=== PATIENT | male | born 1950 | race Caucasian/White ===

== ENCOUNTER 2019-12-19 10:56 | Emergency (ER) | payer MEDICARE, OTHER ==
[2019-12-19] MEDS ORDERED: Ibuprofen 800 MG TAB ONE (11:39)
[2019-12-19] MEDS ORDERED: HYDROcodone/Acetaminophen 5/325 mg Tablet ONE (11:39)
--- NOTE | 2019-12-19 15:50 | RAD ---
RIGHT WRIST THREE VIEWS: 12/19/19 An impacted fracture of the distal radius is present, but there is also a longitudinal part to this f racture that extends into the radiocarpal joint. The medial part of the distal radius shows very slig ht displacement. The carpal bones all appeared intact. The distal ulna appears intact. The remainder of the wrist showed no acute change. IMPRESSION: Fractures of the distal right radius. POS: HOME
--- NOTE | 2019-12-19 15:55 | RAD ---
LEFT WRIST THREE VIEWS: 12/19/19 Very similar fractures are seen involving this wrist as the right. There is a horizontal impacted fra cture of the distal radius, but there is also a vertical/longitudinal component that extends into the radiocarpal joint. The medial fragment is displaced very slightly. The distal ulna, carpal bones, an d metacarpals all appear intact. IMPRESSION: Fractures of the distal radius. POS: HOME
== END 2019-12-19 12:10 | disposition home or self-care (01) ==
LOC: BURERS 10:56
DX: S52.502A Unspecified fracture of the lower end of left radius, initial encounter for closed fracture (principal); S52.501A Unspecified fracture of the lower end of right radius, initial encounter for closed fracture; W11.XXXA Fall on and from ladder, initial encounter

== ENCOUNTER 2021-10-09 11:52 | Emergency (ER) | payer MEDICARE, OTHER | END 2021-10-09 12:42 | disposition home or self-care (01) | LOC: BURERS 11:52 | DX: I10 Essential (primary) hypertension (principal); Z79.899 Other long term (current) drug therapy; Z79.82 Long term (current) use of aspirin; K21.9 Gastro-esophageal reflux disease without esophagitis; E78.5 Hyperlipidemia, unspecified; E78.00 Pure hypercholesterolemia, unspecified; Z87.891 Personal history of nicotine dependence | CPT/HCPCS: 99283 ==